=== PATIENT | male | born 1960 | race Caucasian/White ===

== ENCOUNTER 2017-01-23 17:39 | Emergency (ER) | payer MEDICAID ==
[~2017-01-23] VITALS: Ht 157.5 cm; Wt 74.8 kg
[2017-01-23 18:37] VITALS: BP 114/84
[2017-01-23 19:09] LABS: Basophils # (auto) 0 uL; Basophils % (auto) 0.2 % (0.0-2.0); Eosinophils # (auto) 0 uL; Hematocrit 46.8 % (41.0-53.0); Hemoglobin 16.3 g/dL (13.5-17.5); Lymphocytes # (auto) 1.2 uL; Lymphocytes % (auto) 20.3 % (10.0-50.0); Mean Corpuscular Hgb Conc. 34.7 g/dL (32.0-36.0); Mean Platelet Volume 7.7 fL (7.4-10.4); Monocytes # (auto) 0.8 uL; Neutrophils # (auto) 3.9 uL; Neutrophils % (auto) 65.5 % (37.0-80.0); Platelet Count (auto) 159 10^3/uL (140-450); White Blood Cell 5.9 10^3/uL (4.4-10.8)
[2017-01-23 19:25] LABS: Albumin 3.6 g/dL (3.4-5.0); BUN/Creatinine Ratio 9.7; Calcium 8.5 mg/dL (8.5-10.1); Potassium 4.6 mmol/L (3.5-5.1)
[2017-01-23 19:28] LABS: Bilirubin, Total 0.9 mg/dL (0.2-1.0); Total Protein 8.4 g/dL (6.4-8.2)
== END 2017-01-23 22:35 | disposition left against medical advice (07) ==
LOC: ER 17:44
DX: R11.2 Nausea with vomiting, unspecified (principal); Z53.21 Procedure and treatment not carried out due to patient leaving prior to being seen by health care provider
CPT/HCPCS: 36415; 80053; 85025

== ENCOUNTER → 2018-04-30 | Outpatient (CLI) | payer MEDICAID | END | disposition home or self-care (01) | LOC: Rad HDHVI 09:03 | PROVIDERS: ATTEND Internal Medicine | DX: I35.8 Other nonrheumatic aortic valve disorders (principal); I10 Essential (primary) hypertension; R06.02 Shortness of breath; R07.89 Other chest pain | CPT/HCPCS: 93306 ==

== ENCOUNTER → 2018-05-13 | Outpatient (CLI) | payer MEDICAID ==
[~2018-05-13] VITALS: Ht 160 cm; Wt 76.2 kg
== END | disposition home or self-care (01) ==
LOC: Rad HDHVI 09:05
PROVIDERS: ATTEND Internal Medicine Cardiovascular Disease
DX: I10 Essential (primary) hypertension (principal); G47.33 Obstructive sleep apnea (adult) (pediatric); B19.20 Unspecified viral hepatitis C without hepatic coma
CPT/HCPCS: 78452; 93017; 96374; A9500

== ENCOUNTER 2023-09-16 15:21 | Inpatient (IN) | payer MEDICAID ==
[~2023-09-16] VITALS: Ht 177.8 cm; Wt 71.2 kg
[2023-09-16] MEDS ORDERED: SODIUM CHLORIDE 0.9% 2,000 ML IV ONE (15:45)
[2023-09-16 15:52] LABS: Basophils # (auto) 0 10 ^3/uL (0-0.2); Basophils % (auto) 0.3 % (0.0-2.0); Eosinophils # (auto) 0 10 ^3/uL (0-0.8); Lymphocytes # (auto) 0.3 10 ^3/uL (0.4-5.4); Mean Corpuscular Hgb Conc. 33.1 g/dL (32.0-36.0); Monocytes # (auto) 0.1 10 ^3/uL (0-1.3); Nucleated Red Blood Cells % 0.1 %
[2023-09-16 15:54] LABS: Eosinophils % (auto) 0.1 % (0.0-7.0); Hemoglobin 14.6 g/dL (13.5-17.5); Lymphocytes % (auto) 6.2 % (10.0-50.0); Mean Corpuscular Hemoglobin 33.9 pg (28.0-32.0); Mean Corpuscular Volume 102.3 fL (80.0-100.0); Monocytes % (auto) 1.6 % (0.0-12.0); Neutrophils % (auto) 91.8 % (37.0-80.0); Red Cell Distribution Width 14.6 % (11.8-14.3); White Blood Cell 4.3 10^3/uL (4.4-10.8)
[2023-09-16 16:10] LABS: Alanine Aminotransferase 275 U/L (7-40); Alkaline Phosphatase 110 U/L (46-116); Amylase 42 U/L (30-118); Anion Gap 7 (5-15); Aspartate Aminotransferase 181 U/L (13-40); BUN/Creatinine Ratio 14.9 (10.0-20.0); Blood Urea Nitrogen 18 mg/dL (9-23); Calcium 8.9 mg/dL (8.7-10.4); Carbon Dioxide 26 mmol/L (20-30); Chloride 94 mmol/L (98-107); Potassium 4.4 mmol/L (3.5-5.1); Sodium 127 mmol/L (136-145)
[2023-09-16 16:11] LABS: Albumin 3.5 g/dL (3.2-4.8); Bilirubin, Total 0.6 mg/dL (0.2-1.0); Total Protein 7.2 g/dL (5.7-8.2)
[2023-09-16 16:15] LABS: Glucose 637 mg/dL (74-106)
[2023-09-16 16:26] LABS: Urine Bacteria MANY /hpf (None Seen); Urine Blood 1+ /uL (Negative); Urine Clarity CLOUDY (Clear); Urine Color Colorless (Yellow); Urine Mucus FEW (None Seen); Urine Protein, UAD 1+ (Negative); Urine Specific Gravity 1.015 (1.001-1.035); Urine Urobilinogen Normal (Negative); Urine WBC 2932 /hpf (0 - 3); Urine WBC Clumps PRESENT /hpf (None Seen)
[2023-09-16] MEDS ORDERED: SODIUM CHLORIDE 0.9% 1,000 ML IVB ONE (16:30)
[2023-09-16] MEDS ORDERED: cefTRIAXone 1GM/50ML D5W 50 ML IV ONE (17:00)
[2023-09-16] MEDS ORDERED: InsuLIN REG 1unit/0.01ml Soln (100units/ml) IV ONE ×2 (17:00→18:00)
[2023-09-16] MEDS ORDERED: NEOMYCIN-POLYMY-DEXAMETH 0.1% OPTH(EYE) SUSP 5ML RIGHTEYE ONE (17:30)
[2023-09-16] MEDS ORDERED: NEOMYCIN-POLYMY-DEXAMETH 0.1% OPTH(EYE) SUSP 5ML LEFTEYE ONE (17:30)
[2023-09-16 17:39] LABS: Magnesium 1.4 mg/dL (1.6-2.6)
[2023-09-16] MEDS ORDERED: DEXTROSE (50%) 50ML SYRG IV PRN (18:00)
[2023-09-16] MEDS ORDERED: MORPHINE SULFATE INJ 2 MG/ml SYRG IV PRN (18:00)
[2023-09-16] MEDS ORDERED: NITROGLYCERIN 0.4 MG SL TAB SL PRN (18:00)
[2023-09-16 18:03] VITALS: PULSE 115; RESP 23; O2SAT 95
[2023-09-16] MEDS: MAGNESIUM SULFATE 1GM/100ML 100 ML IV SCH ×3 (18:40→23:20)
[2023-09-16] MEDS: SODIUM CHLORIDE 0.9% 1,000 ML IV SCH (18:40)
[2023-09-16] MEDS: ACETAMINOPHEN 325 MG TAB PO PRN (18:40)
[2023-09-16 19:30] LABS: Amphetamine Screen, Urine Neg (NEGATIVE); Barbiturate Scree,Urine Neg (NEGATIVE); Benzodiazephine Screen, Urine Neg (NEGATIVE); Cannabinoid Screen, Urine Neg (NEGATIVE); Cocaine Screen, Urine Neg (NEGATIVE); Opiate Scree,Urine Neg (NEGATIVE); Phencyclidine Screen, Urine Neg (NEGATIVE)
[2023-09-16 19:40] VITALS: PULSE 106; RESP 22; O2SAT 95
[2023-09-16] MEDS ORDERED: InsuLIN REG 1unit/0.01ml Soln (100units/ml) SC SCH (22:00)
[2023-09-16] MEDS: ACCU-CHEK COMFORT CURVE STRIP VI SCH (23:00)
[2023-09-16] MEDS: ASCORBIC ACID 500 MG TAB PO SCH (23:21)
[2023-09-17] VITALS (9 sets, daily range): BP systolic 90–97; BP diastolic 53–70; PULSE 65–97; RESP 16–20; TEMP 97–99; O2SAT 93–98
[2023-09-17] MEDS ORDERED: MAGNESIUM SULFATE 1GM/100ML 100 ML IV ONE (01:32)
[2023-09-17] MEDS: MAGNESIUM SULFATE 1GM/100ML 100 ML IV SCH ×3 (01:35→14:34)
[2023-09-17] MEDS: SODIUM CHLORIDE 0.9% 1,000 ML IV SCH ×4 (03:02→23:12)
[2023-09-17] MEDS: ACCU-CHEK COMFORT CURVE STRIP VI SCH ×4 (06:12→21:54)
[2023-09-17] MEDS: InsuLIN REG 1unit/0.01ml Soln (100units/ml) SC SCH ×4 (06:14→21:57)
[2023-09-17 06:39] LABS: Alanine Aminotransferase 197 U/L (7-40); Albumin 2.8 g/dL (3.2-4.8); Alkaline Phosphatase 75 U/L (46-116); Anion Gap 4 (5-15); Aspartate Aminotransferase 138 U/L (13-40); BUN/Creatinine Ratio 15.6 (10.0-20.0); Bilirubin, Total 0.5 mg/dL (0.2-1.0); Blood Urea Nitrogen 10 mg/dL (9-23); Calcium 7.7 mg/dL (8.7-10.4); Carbon Dioxide 23 mmol/L (20-30); Potassium 3.3 mmol/L (3.5-5.1)
[2023-09-17 06:48] LABS: Chloride 108 mmol/L (98-107); Glucose 147 mg/dL (74-106); Sodium 135 mmol/L (136-145)
[2023-09-17 07:08] LABS: Total Protein 5.8 g/dL (5.7-8.2)
[2023-09-17 07:09] LABS: Basophils # (auto) 0 10 ^3/uL (0-0.2); Basophils % (auto) 0.3 % (0.0-2.0); Eosinophils # (auto) 0 10 ^3/uL (0-0.8); Hemoglobin 12.3 g/dL (13.5-17.5); Lymphocytes # (auto) 1.6 10 ^3/uL (0.4-5.4); Monocytes # (auto) 0.5 10 ^3/uL (0-1.3)
[2023-09-17 07:12] LABS: Eosinophils % (auto) 0.5 % (0.0-7.0); Hematocrit 36.1 % (41.0-53.0); Lymphocytes % (auto) 19.5 % (10.0-50.0); Mean Corpuscular Hgb Conc. 34.1 g/dL (32.0-36.0); Mean Corpuscular Volume 99.9 fL (80.0-100.0); Monocytes % (auto) 5.8 % (0.0-12.0); Neutrophils # (auto) 5.9 10 ^3/uL (1.6-8.6); Neutrophils % (auto) 73.9 % (37.0-80.0); Red Blood Cells 3.62 10^6/uL (4.5-5.90); Red Cell Distribution Width 14.3 % (11.8-14.3)
[2023-09-17] MEDS: ZINC SULFATE 220mg CAP or TAB PO SCH (09:31)
[2023-09-17] MEDS: ASCORBIC ACID 500 MG TAB PO SCH ×2 (09:31→21:54)
[2023-09-17] MEDS: MULTIPLE VITAMIN TAB PO SCH (09:32)
[2023-09-17] MEDS: ENOXAPARIN SOD 40 MG/0.4 ML SYRINGE SC SCH (09:32)
[2023-09-17 09:34] LABS: Hepatitis B Surface Antigen Negative (Negative)
[2023-09-17] MEDS: cefTRIAXone 1GM/50ML D5W 50 ML IV SCH (09:39)
[2023-09-17 11:55] LABS: Hepatitis C Antibody Positive (Negative)
[2023-09-17] MEDS ORDERED: DEXTROSE (50%) 50ML SYRG IV PRN (15:45)
[2023-09-17] MEDS ORDERED: InsuLIN REG 1unit/0.01ml Soln (100units/ml) SC SCH (17:00)
[2023-09-17] MEDS: ACETAMINOPHEN 325 MG TAB PO PRN (21:54)
[2023-09-18] VITALS (7 sets, daily range): BP systolic 88–114; BP diastolic 51–76; PULSE 74–86; RESP 12–20; TEMP 98–98.9; O2SAT 93–97
[2023-09-18] MEDS: ACCU-CHEK COMFORT CURVE STRIP VI SCH ×4 (06:33→21:42)
[2023-09-18] MEDS: SODIUM CHLORIDE 0.9% 1,000 ML IV SCH ×2 (06:35→20:00)
[2023-09-18] MEDS: InsuLIN REG 1unit/0.01ml Soln (100units/ml) SC SCH ×4 (06:35→21:42)
[2023-09-18] MEDS: MULTIPLE VITAMIN TAB PO SCH (09:09)
[2023-09-18] MEDS: ENOXAPARIN SOD 40 MG/0.4 ML SYRINGE SC SCH (09:10)
[2023-09-18] MEDS: ZINC SULFATE 220mg CAP or TAB PO SCH (09:10)
[2023-09-18] MEDS: ASCORBIC ACID 500 MG TAB PO SCH ×2 (09:10→21:42)
[2023-09-18] MEDS: cefTRIAXone 1GM/50ML D5W 50 ML IV SCH (09:13)
[2023-09-18] MEDS: ACETAMINOPHEN 325 MG TAB PO PRN ×2 (09:29→18:19)
[2023-09-19] MEDS: SODIUM CHLORIDE 0.9% 1,000 ML IV SCH ×2 (02:27→12:40)
[2023-09-19] MEDS: ACETAMINOPHEN 325 MG TAB PO PRN ×2 (02:31→09:01)
[2023-09-19 05:00] VITALS: BP 115/75; PULSE 71; RESP 20; TEMP 97.2; O2SAT 94
[2023-09-19] MEDS: ACCU-CHEK COMFORT CURVE STRIP VI SCH ×2 (06:25→11:30)
[2023-09-19] MEDS: InsuLIN REG 1unit/0.01ml Soln (100units/ml) SC SCH ×2 (06:27→11:30)
[2023-09-19 08:00] VITALS: PULSE 73; PULSE 78; RESP 18
[2023-09-19 09:00] VITALS: BP 114/73; PULSE 73; RESP 18; TEMP 97.6; O2SAT 97
[2023-09-19] MEDS: cefTRIAXone 1GM/50ML D5W 50 ML IV SCH (09:04)
[2023-09-19] MEDS: MULTIPLE VITAMIN TAB PO SCH (09:09)
[2023-09-19] MEDS: ZINC SULFATE 220mg CAP or TAB PO SCH (09:09)
[2023-09-19] MEDS: ASCORBIC ACID 500 MG TAB PO SCH (09:09)
[2023-09-19] MEDS: ENOXAPARIN SOD 40 MG/0.4 ML SYRINGE SC SCH (09:10)
[2023-09-19] MEDS ORDERED: CIPR-173 PO (11:11)
[2023-09-19] MEDS ORDERED: METF-372 PO (11:11)
[2023-09-19 12:16] VITALS: TEMP 36.4
== END 2023-09-19 13:01 | disposition home or self-care (01) | DRG 720 ==
LOC: EDBD 15:21 → ER 15:21 → TELE 18:03 → TELE-WESTW 18:03
PROVIDERS: ADMIT Nurse Practitioner Family; ATTEND Family Medicine
DX: A41.59 Other Gram-negative sepsis (principal); E11.10 Type 2 diabetes mellitus with ketoacidosis without coma; E86.0 Dehydration; E83.42 Hypomagnesemia; E87.1 Hypo-osmolality and hyponatremia; H10.33 Unspecified acute conjunctivitis, bilateral; N10 Acute pyelonephritis; N30.00 Acute cystitis without hematuria; I10 Essential (primary) hypertension; F17.210 Nicotine dependence, cigarettes, uncomplicated; B19.20 Unspecified viral hepatitis C without hepatic coma; R74.01 Elevation of levels of liver transaminase levels; R74.8 Abnormal levels of other serum enzymes; R79.89 Other specified abnormal findings of blood chemistry; Z59.01 Sheltered homelessness; Z71.6 Tobacco abuse counseling
CPT/HCPCS: 36415; 71045; 76705; 80053; 80307; 80320; 81001; 82150; 82962; 83036; 83690; 83735; 83880; 84484; 85025; 86803; 87040; 87077; 87086; 87088; 87186; 87340; 93005; 96361; 96365; 96375; G0378; J1815

== ENCOUNTER 2025-07-17 09:50 | Inpatient (IN) | payer MEDICAID ==
[~2025-07-17] VITALS: Ht 160 cm; Wt 62.8 kg
[~2025-07-17 09:50] MED LIST: CIPR-173 PO; METF-372 PO
--- NOTE | 2025-07-17 10:46 | ED.PDOC ---
History of Present Illness HPI Comments 64 year old male with PMHx HTN, DM insulin dependent, Hepatitis C, presents to the ED with a chief complaint of generalized weakness onset 1 day. Patient states he has been experiencing generalized weakness as well as nausea and abdominal discomfort for the past day. He states he ate 2 apples last night, bel ieves his BG might be elevated. Denies fever, chills, chest pain, vomiting, diarrhea, dizziness, chest pain, shortness of breath, numbness/tingling, dysuria, hematuria, melena. No other symptoms or modifying factors present at this time. Chief Complaint: General Weakness Time Seen by MD: 10:30 Primary Care Provider: NONE Reviewed Notes: Medications, Allergies Allergies: Coded Allergies: NO KNOWN ALLERGIES (Unverified , 01/05/12) Home Meds Active Scripts Metformin Hydrochloride (Metformin Hcl) 1,000 Mg Tab, 1 TAB PO BID, #180 TAB 1 Refill Prov:GARIMA HURTADO MD 09/19/23 Ciprofloxacin Hcl (Cipro) 500 Mg Tab, 1 TAB PO BID, #20 TAB Prov:GARIMA HURTADO MD 09/19/23 Information Source: Patient Mode of Arrival: Wheelchair Severity: Moderate Timing: Days Duration: Since onset Prehospital treatment: None Past Medical History PAST MEDICAL HISTORY: DM, HTN Past Medical History (Other): hep c Surgical History: Denies all surgeries Family History Family History: No family hx of DM, No family hx of Heart yoly, No family hx of Stroke Social History Smoker: Cigarettes Alcohol: Denies ETOH Use Drugs: Denies Drug Use Lives In: Homeless Constitutional: reports: weakness; denies: chills, diaphoresis, fatigue, fever, malaise, sweats, others EENTM: denies: blurred vision, double vision, ear bleeding, ear discharge, ear drainage, ear pain, ear ringing, eye pain, eye redness, hearing loss, mouth pain, mouth swelling, nasal discharge, nose bleeding, nose congestion, nose pain, photophobia, tearing, throat pain, throat swelling, voice changes, others Respiratory: denies: cough, hemoptysis, orthopnea, SOB at rest, shortness of breath, SOB with excertion, stridor, wheezing, others Cardiovascular: denies: chest pain, dizzy spells, diaphoresis, Dyspnea on exertion, edema, irregular heart beat, left arm pain, lightheadedness, palpitations, PND, syncope, others Gastrointestinal: reports: abdominal pain, nausea; denies: abdomen distended, blood streaked bowels, constipated, diarrhea, dysphagia, difficulty swallowing, hematemesis, melena, poor appetite, poor fluid intake, rectal bleeding, rectal pain, vomiting, others Genitourinary: denies: burning, dysuria, flank pain, frequency, hematuria, incontinence, penile discharge, penile sore, pain, testicle pain, testicle swelling, urgency, others Neurological: reports: weakness; denies: dizziness, fainting, headache, left sided numbness, left sided weakness, numbness, paresthesia, pre-existing deficit, right sided numbness, right sided weakness, seizure, speech problems, tingling, tremors, others Musculoskeletal: denies: back pain, gout, joint pain, joint swelling, muscle pain, muscle stiffness, neck pain, others Integumetry: denies: bruises, change in color, change in hair/nails, dryness, laceration, lesions, lumps, rash, wounds, others Allergic/Immunocompromised: denies: Difficulty Healing, Frequent Infections, Hives, Itching, others Hematologic/Lymphatic: denies: anemia, blood clots, easy bleeding, easy bruising, swollen glands, others Endocrine: denies: excessive hunger, excessive sweating, excessive thirst, excessive urination, flushing, intolerance to cold, intolerance to heat, unexplained weight gain, unexplained weight loss, others Psychiatric: denies: anxiety, bipolar disorder, depression, hopeless, panic disorder, schizophrenia, sleepless, suicidal, others Physical Exam General Appearance: Normal HEENT: Normal ENT Inspection, Pharynx Normal, TMs Normal Neck: Full Range of Motion, Non-Tender, Normal, Normal Inspection Respiratory: Chest Non-Tender, Lungs Clear, No Accessory Muscle Use, No Respiratory Distress, Normal Breath Sounds Cardiovascular: No Edema, No JVD, No Murmur, No Gallop, Normal Peripheral Pulses, Regular Rate/Rhythm Breast Exam: Deferred Gastrointestinal: No Organomegaly, Non Tender, No Pulsatile Mass, Normal Bowel Sounds, Soft Genitalia: Deferred Pelvic: Deferred Rectal: Deferred Extremities: No calf tenderness, Normal capillary refill, Normal inspection, Normal range of motion, Non-tender, No pedal edema Musculoskeletal : Apperance: Normal Neurologic: Alert, healthcare economics consultant II-XII nml as Tested, No Motor Deficits, Normal Affect, Normal Mood, No Sensory Deficits Cerebellar Function: Normal Reflexes: Normal Skin: Dry, Normal Color, Warm Lymphatic: No Adenopathy Was a procedure done? Was a procedure done?: No Differential Dx Considerations may include: ACS, CVA, viral syndrome, electrolyte abnormality, infectious etiology X-Ray, Labs, Meds, VS Vital Signs Date Time Temp Pulse Resp B/P (MAP) Pulse Ox O2 Delivery O2 Flow Rate FiO2 07/17/25 10:20 Room Air* 0 21 07/17/25 10:18 97.1 89 16 110/75 (87) 97 97.1 07/17/25 09:52 97.1 89 16 110/75 97 97.1 Lab Test 07/17/25 12:46 07/17/25 11:18 07/17/25 09:59 Range/Units Troponin I High Sensitivity < 3 L < 3 L </=54 ng/L White Blood Count 8.6 4.4-10.8 10^3/uL Red Blood Count 3.85 L 4.5-5.90 10^6/uL Hemoglobin 13.0 L 13.5-17.5 g/dL Hematocrit 38.7 L 41.0-53.0 % Mean Corpuscular Volume 100.4 H 80.0-100.0 fL Mean Corpuscular Hemoglobin 33.7 H 28.0-32.0 pg Mean Corpuscular Hemoglobin Concent 33.6 32.0-36.0 g/dL Red Cell Distribution Width 14.1 11.8-14.3 % Platelet Count 135 L 140-450 10^3/uL Mean Platelet Volume 7.2 6.9-10.8 fL Neutrophils (%) (Auto) 77.9 37.0-80.0 % Lymphocytes (%) (Auto) 11.9 10.0-50.0 % Monocytes (%) (Auto) 7.3 0.0-12.0 % Eosinophils (%) (Auto) 2.6 0.0-7.0 % Basophils (%) (Auto) 0.3 0.0-2.0 % Neutrophils # (Auto) 6.7 1.6-8.6 10 ^3/uL Lymphocytes # (Auto) 1.0 0.4-5.4 10 ^3/uL Monocytes # (Auto) 0.6 0-1.3 10 ^3/uL Eosinophils # (Auto) 0.2 0-0.8 10 ^3/uL Basophils # (Auto) 0 0-0.2 10 ^3/uL Nucleated Red Blood Cells 0.0 % Sodium Level 133 L 136-145 mmol/L Potassium Level 4.4 3.5-5.1 mmol/L Chloride Level 98 98-107 mmol/L Carbon Dioxide Level 26 20-31 mmol/L Anion Gap 9 5-15 Blood Urea Nitrogen 14 9-23 mg/dL Creatinine 0.74 0.700-1.30 mg/dL Glomerular Filtration Rate Calc 102 >90 mL/min BUN/Creatinine Ratio 18.9 10.0-20.0 Serum Glucose 302 H 74-106 mg/dL Calcium Level 8.6 L 8.7-10.4 mg/dL POC Glucose 237 H 70-106 mg/dl [place] [id number] Ph: [phone] DIAGNOSTIC IMAGING Diagnostic Imaging Report : [id number] Signed PATIENT: ANABELL AN ACCT: [id number] UNIT: [id number] : 1960 LOC: ER ROOM / BED: / AGE / SEX: 64 / M ADM STATUS: REG ER SERVICE 1042 ORDERING PHYSICIAN: JEROME SINGH MD PROCEDURE(s): CXRP - CHEST PORTABLE REASON: weakness ORDER NUMBER(s): [id number], ACCESSION NUMBER(s): [id number] EXAM: XY CHEST PORTABLE Indication: weakness Technique: Single frontal view of the chest was obtained Comparison: XY CHEST PORTABLE on DOS: 09/16/23 FINDINGS: Lines and Tubes: None Lungs: No focal consolidation. Low lung volumes. Pleura: No effusion. No pneumothorax. Cardiomediastinal contours: Unremarkable Bones: No acute osseous abnormality. IMPRESSION: No acute cardiopulmonary disease. ATED BY: SERGIO LOPEZ MD DICTATED DATE/TIME: 07/17/25 112 SIGNED BY: SERGIO LOPEZ MD SIGNED DATE/TIME: 07/17/25 112 CC: Time of 1ST Reevaluation: 11:00 Reevaluation 1ST: Unchanged Patient Education/Counseling: Diagnosis, Treatment, Prognosis Family Education/Counseling: No Family Present SEPSIS Sepsis Screen Date sepsis recognized/suspect: Jul 17, 2025 Time Sepsis recognized/suspect: 951 Recent Procedure: No On Antibiotic Therapy: No Respiratory Rate >20: No Heart Rate >90: No Temp<36 C (96.8 F) or >38.3 C: No SBP <90 or MAP <65 mmHG: No New Acute Mental Status Change: No Is the patient on CPAP, BIPAP,: No Physician Orders Urinalysis (07/17/25 10:42) Chest Portable (07/17/25 10:42) Electrocardigram (07/17/25 10:42) Troponin-I Hs (07/17/25 13:42) Electrocardigram (07/17/25 11:42) Electrocardigram (07/17/25 13:42) Vital Signs Date Time Temp Pulse Resp B/P (MAP) Pulse Ox O2 Delivery O2 Flow Rate FiO2 07/17/25 10:20 Room Air* 0 21 07/17/25 10:18 97.1 89 16 110/75 (87) 97 97.1 07/17/25 09:52 97.1 89 16 110/75 97 97.1 Laboratory Tests Test 07/17/25 11:18 White Blood Count 8.6 10^3/uL (4.4-10.8) Departure 1 Departure Time of Disposition: 13:40 (Patient with a multiple episodes of near-syncope and generalized weakness. Patient also with some worsening confusion. On patient for further workup and expert consultation) Impression: Primary Impression: Acute metabolic encephalopathy Additional Impressions: Uncontrolled diabetes mellitus Generalized weakness Disposition: ADMITTED INPATIENT Admit to: Med Surg Condition: Guarded Critical Care Note Critical Care Time?: No Stability Stability form required: No Heart Score Heart Score: Heart Score Response (Comments) Value History N/A 0 EKG N/A 0 Age N/A 0 Risk Factors N/A 0 Troponin N/A 0 Total 0 I personally scribed for JEROME SINGH MD ([email or web address]) on 07/17/25 at 10:46. Electronically submitted by Aminah Fargoso ([email or web address]). I personally scribed for JEROME SINGH MD ([email or web address]) on 07/17/25 at 12:21. Electronically submitted by Aminah Fragoso ([email or web address]). JEROME SINGH MD Jul 17, 2025 10:46
--- NOTE | 2025-07-17 11:24 | DVH ---
EXAM: XY CHEST PORTABLE Indication: weakness Technique: Single frontal view of the chest was obtained Comparison: XY CHEST PORTABLE on DOS: 09/16/23 FINDINGS: Lines and Tubes: None Lungs: No focal consolidation. Low lung volumes. Pleura: No effusion. No pneumothorax. Cardiomediastinal contours: Unremarkable Bones: No acute osseous abnormality. IMPRESSION: No acute cardiopulmonary disease.
[2025-07-17 11:38] LABS: Hematocrit 38.7 % (41.0-53.0); Hemoglobin 13.0 g/dL (13.5-17.5); Mean Corpuscular Hemoglobin 33.7 pg (28.0-32.0); Mean Corpuscular Volume 100.4 fL (80.0-100.0); Nucleated Red Blood Cells % 0.0 %
[2025-07-17 11:48] LABS: Chloride 98 mmol/L (98-107); Potassium 4.4 mmol/L (3.5-5.1)
[2025-07-17 11:49] LABS: Anion Gap 9 (5-15); Carbon Dioxide 26 mmol/L (20-31); Sodium 133 mmol/L (136-145)
[2025-07-17 11:50] LABS: Calcium 8.6 mg/dL (8.7-10.4)
[2025-07-17 11:55] LABS: BUN/Creatinine Ratio 18.9 (10.0-20.0); Blood Urea Nitrogen 14 mg/dL (9-23); Glucose 302 mg/dL (74-106)
[2025-07-17] MEDS ORDERED: NITROGLYCERIN 0.4 MG SL TAB SL PRN (15:30)
[2025-07-17] MEDS ORDERED: MORPHINE SULFATE INJ 2 MG/ml SYRG IV PRN (15:30)
[2025-07-17 15:33] LABS: Urine Protein, UAD Negative (Negative)
--- NOTE | 2025-07-17 15:38 | DVHHPRES ---
History of Present Illness Resident Creating Document: GER HOGUE RESIDENT History of Present Illness This is a 64-year-old male with past medical history of hypertension, type 2 diabetes mellitus, hepatitis-C presented to the ED with a chief complaint of generalized weakness, abdominal discomfort, nausea and vomiting for last 2 days prior to this visit. The patient stated that for last few weeks his blood sugar was fluctuating average around 250 and had few near syncopal events, he fall without any loss of consciousness or any trauma to the head or any parts of the body. He mentioned compliant with his diabetic medication. He denies fever chill, chills, chest pain, shortness of breath, palpitation, lightheadedness, dysuria, hematuria or any altered bowel habit. PCP: [facility] Past Medical History Hypertension, type 2 diabetes mellitus, hepatitis-C Past Surgical History Denies any surgical history Family History Unknown Past Social History Lives alone Smoke1 pack per week, quit drinking 12 years ago and never tried any other drugs Review of Systems Constitutional: Yes: Weakness; No: Fever, Chills, Sweats, Malaise, Other Eyes: No: Pain, Vision change, Conjunctivae inflammation, Eyelid inflammation, Other, Redness ENT: No: Ear pain, Ear discharge, Nose pain, Nose discharge, Nose congestion, Mouth pain, Mouth swelling, Throat pain, Throat swelling, Other Respiratory: No: Cough, Dry, Shortness of breath, SOB with excertion, Wheezing, Hemoptysis, Pleuritic Pain, Sputum, Wheezing, Other Cardiovascular: No: Chest Pain, Palpitations, Orthopnea, Paroxysmal Noc. Dyspnea, Edema, Lt Headedness, Other Gastrointestinal: Nausea, Vomiting, Abdominal Pain; No: Diarrhea, Constipation, Melena, Hematochezia, Other Genitourinary: No Dysuria, No Frequency, No Incontinence, No Hematuria, No Retention, No Other Musculoskeletal: No: other, neck pain, shoulder pain, arm pain, back pain, hand pain, leg pain, foot pain Skin: No: Rash, Lesions, Jaundice, Bruising, Other Neurological: No: Weakness, Numbness, Incoordination, Change in speech, Confusion, Seizures, Other Allergies: Coded Allergies: NO KNOWN ALLERGIES (Unverified , 01/05/12) Medications Current Medications Medications Dose Ordered Sig/[facility] Route Start Time Stop Time Status Last Admin Dose Admin Nitroglycerin 0.4 mg Q5MINP PRN SL 07/17/25 15:30 Morphine Sulfate 2 mg Q30M PRN IV 07/17/25 15:30 Diagnostic Test (Pha) 1 strip ACHS 07/17/25 17:00 UNV Insulin Human Regular HS SC 07/17/25 22:00 UNV Insulin Human Regular AC SC 07/17/25 17:00 UNV Dextrose 50 ml UD PRN IV 07/17/25 15:45 UNV Exam Vital Signs Vital Signs Date Time Temp Pulse Resp B/P (MAP) Pulse Ox O2 Delivery O2 Flow Rate FiO2 07/17/25 13:38 89 17 93 Room Air 07/17/25 13:38 97.6 111/70 (84) 97.6 07/17/25 10:20 0 21 Exam Physical examination: General Appearance: Alert, Oriented X2, Cooperative, No acute distress HEENT: Atraumatic, PERRLA, EOMI, Mucous membrane moist/pink Respiratory: Clear to auscultation, Normal air movement Cardiovascular: Regular rate, Normal S1, Normal S2, No murmurs, no chest wall tenderness Abdominal: Normal bowel sounds, Soft, No tenderness, No hepatospenomegaly, No masses Extremities: No clubbing, No cyanosis, No edema, Normal pulses, No tenderness/ swelling Skin: No rashes, No breakdown, No significant lesion Neuro: Normal speech, Strength at 5/5 X4 ext, Normal tone, Sensation intact, Cranial nerves 3-12 NL, Reflexes 2+ Psych/Mental Status: Mental status NL, Mood NL Labs/Xrays Labs Test 07/17/25 14:44 07/17/25 14:12 07/17/25 11:18 07/17/25 09:59 Range/Units Urine Color Yellow Yellow Urine Clarity Clear Clear Urine pH 6.5 5.0-9.0 Urine Specific [place] 1.026 1.001-1.035 Urine Protein Negative Negative Urine Ketones Negative Negative Urine Blood Negative Negative /uL Urine Nitrite Negative Negative Urine Bilirubin Negative Negative Urine Urobilinogen Normal Negative mg/dL Urine Leukocyte Esterase Negative Negative /uL Urine RBC <1 0 - 3 /hpf Urine Microscopic WBC 1 0-3 /HPF Urine Squamous Epithelial Cells None seen <5 /hpf Urine Bacteria None seen None Seen /hpf Urine Glucose 4+ H Normal mg/dL Troponin I High Sensitivity < 3 L </=54 ng/L White Blood Count 8.6 4.4-10.8 10^3/uL Red Blood Count 3.85 L 4.5-5.90 10^6/uL Hemoglobin 13.0 L 13.5-17.5 g/dL Hematocrit 38.7 L 41.0-53.0 % Mean Corpuscular Volume 100.4 H 80.0-100.0 fL Mean Corpuscular Hemoglobin 33.7 H 28.0-32.0 pg Mean Corpuscular Hemoglobin Concent 33.6 32.0-36.0 g/dL Red Cell Distribution Width 14.1 11.8-14.3 % Platelet Count 135 L 140-450 10^3/uL Mean Platelet Volume 7.2 6.9-10.8 fL Neutrophils (%) (Auto) 77.9 37.0-80.0 % Lymphocytes (%) (Auto) 11.9 10.0-50.0 % Monocytes (%) (Auto) 7.3 0.0-12.0 % Eosinophils (%) (Auto) 2.6 0.0-7.0 % Basophils (%) (Auto) 0.3 0.0-2.0 % Neutrophils # (Auto) 6.7 1.6-8.6 10 ^3/uL Lymphocytes # (Auto) 1.0 0.4-5.4 10 ^3/uL Monocytes # (Auto) 0.6 0-1.3 10 ^3/uL Eosinophils # (Auto) 0.2 0-0.8 10 ^3/uL Basophils # (Auto) 0 0-0.2 10 ^3/uL Nucleated Red Blood Cells 0.0 % Sodium Level 133 L 136-145 mmol/L Potassium Level 4.4 3.5-5.1 mmol/L Chloride Level 98 98-107 mmol/L Carbon Dioxide Level 26 20-31 mmol/L Anion Gap 9 5-15 Blood Urea Nitrogen 14 9-23 mg/dL Creatinine 0.74 0.700-1.30 mg/dL Glomerular Filtration Rate Calc 102 >90 mL/min BUN/Creatinine Ratio 18.9 10.0-20.0 Serum Glucose 302 H 74-106 mg/dL Calcium Level 8.6 L 8.7-10.4 mg/dL POC Glucose 237 H 70-106 mg/dl SEPSIS Sepsis Screen Date sepsis recognized/suspect: Jul 17, 2025 Time Sepsis recognized/suspect: 951 Recent Procedure: No On Antibiotic Therapy: No Respiratory Rate >20: No Heart Rate >90: No Temp<36 C (96.8 F) or >38.3 C: No SBP <90 or MAP <65 mmHG: No New Acute Mental Status Change: No Is the patient on CPAP, BIPAP,: No Physician Orders Chest Portable (07/17/25 10:42) Electrocardigram (07/17/25 10:42) Electrocardigram (07/17/25 11:42) Electrocardigram (07/17/25 13:42) Admit (07/17/25 15:27) Nitroglycerin Sublingual (Ntrostat Subli (07/17/25 15:30) Morphine Sulfate Injection (07/17/25 15:30) Notify Of Changes From Base (07/17/25 15:27) Supervisor Stitching Department For 24 Hours (07/17/25 15:27) Emergency Dysrhythmia Protocol (07/17/25 15:27) Consistent Carb([facility])Diabetes (07/17/25 Dinner) Code Status (07/17/25 15:27) Thyroid Stimulating Hormone (07/17/25 15:30) Comprehensive Hepatitis Panel (07/17/25 15:30) Hepatic Panel (07/17/25 15:30) PTPTT (07/17/25 15:30) Chest Portable (07/17/25 15:33) Echo 2d Mode Cardiac Dop (07/17/25 15:33) Drug Screen (07/17/25 15:34) Glucose Blood (Accu-Chek Comfort Curve T (07/17/25 17:00) Insulin R (Human) (Insulin R) (07/17/25 22:00) Insulin R (Human) (Insulin R) (07/17/25 17:00) Dextrose 50% Syringe (07/17/25 15:45) Enoxaparin Sodium (Lovenox) (07/18/25 10:00) Vital Signs Date Time Temp Pulse Resp B/P (MAP) Pulse Ox O2 Delivery O2 Flow Rate FiO2 07/17/25 13:38 89 17 93 Room Air 07/17/25 13:38 97.6 16 111/70 (84) 94 97.6 07/17/25 10:20 Room Air* 0 21 07/17/25 10:18 97.1 89 16 110/75 (87) 97 97.1 07/17/25 09:52 97.1 89 16 110/75 97 97.1 Laboratory Tests Test 07/17/25 11:18 White Blood Count 8.6 10^3/uL (4.4-10.8) Assessment/Plan Assessment/Plan Assessment and plan: # Acute metabolic/ toxic encephalopathy # Recurrent near syncopal event, rule out arrhythmia - EKG demonstrated and troponins were unremarkable - admit the patient in telemetry - Pending CT head without contrast, UDS, UA and echo # Uncontrolled type 2 diabetes mellitus - moderate sliding scale of insulin # Hypertensive heart disease - hold home medication as blood pressure is on the lower side - pending echo # DVT prophylaxis - Lovenox 40 mg sc daily Goal of care discussed with the patient for more than 20 minutes full code Plan discussed with Dr. Jaramillo Plan discussed with: Patient, Other (RN) My Orders Orders - GER HOGUE RESIDENT Procedure Category Date Status Time Admit ADMIT 07/17/25 Transmitted 15:27 Nitroglycerin PHA 07/17/25 In Process Sublingual (Ntrostat 15:30 Morphine Sulfate PHA 07/17/25 In Process Injection 15:30 Notify Of Changes ROXY 07/17/25 In Process From Base 15:27 Supervisor Stitching Department For ROXY 07/17/25 In Process 24 Hours 15:27 Emergency Dysrhythmia ROXY 07/17/25 In Process Protocol 15:27 Consistent DIET 07/17/25 Transmitted Carb(Ccho)Diabetes Dinner Code Status CODE 07/17/25 Transmitted 15:27 Thyroid Stimulating LAB 07/17/25 In Process Hormone 15:30 Comprehensive LAB 07/17/25 Logged Hepatitis Panel 15:30 Hepatic Panel LAB 07/17/25 In Process 15:30 PTPTT LAB 07/17/25 In Process 15:30 Chest Portable XY 07/17/25 Logged 15:33 Echo 2d Mode Cardiac US 07/17/25 Logged DOP 15:33 Drug Screen LAB 07/17/25 Logged 15:34 Glucose Blood PHA 07/17/25 Logged (Accu-Chek Comfort 17:00 Insulin R (Human) PHA 07/17/25 Logged (Insulin R) 22:00 Insulin R (Human) PHA 07/17/25 Logged (Insulin R) 17:00 Dextrose 50% Syringe PHA 07/17/25 Logged 15:45 Enoxaparin Sodium PHA 07/18/25 Transmitted (Lovenox) 10:00 Date of Service: Jul 17, 2025 Billing Provider: TONY RAI MD Common Visit Codes: [id number] INP/OBS CARE (HIGH) GER HOGUE RESIDENT Jul 17, 2025 15:38
[2025-07-17] MEDS ORDERED: DEXTROSE (50%) 50ML SYRG IV PRN (15:45)
[2025-07-17 16:02] LABS: INR 1.12 (0.9-1.15); Partial Thromboplastin Time 27.6 SEC (24.5-34.5); Prothrombin Time 11.7 sec (9.3-11.8)
--- NOTE | 2025-07-17 16:16 | DVH ---
CHEST RADIOGRAPH Indication: sob Technique: Single frontal view of the chest was obtained Comparison: XY CHEST PORTABLE on DOS: 07/17/25, XY CHEST PORTABLE on DOS: 09/16/23 FINDINGS: Lines and Tubes: None Lungs: No focal consolidation. Probable gas distended bowel below the left diaphragm. If however pneu moperitoneum is of clinical concern recommend CT abdomen pelvis. Pleura: No effusion. No pneumothorax. Cardiomediastinal contours: Unremarkable Bones: No acute osseous abnormality. IMPRESSION: 1. No acute cardiopulmonary disease. 2. Probable gas distended bowel below the left diaphragm. If however pneumoperitoneum is of clinical concern recommend CT abdomen and pelvis.
[2025-07-17] MEDS: SODIUM CHLORIDE 0.9% 1,000 ML IV SCH (16:45)
[2025-07-17] MEDS: InsuLIN REG 1unit/0.01ml Soln (100units/ml) SC SCH ×2 (17:00→21:15)
[2025-07-17] MEDS: ACCU-CHEK COMFORT CURVE STRIP VI SCH (17:00)
[2025-07-17 17:04] VITALS: PULSE 80; RESP 18; O2SAT 97
--- NOTE | 2025-07-17 18:00 | DVH ---
CLINICAL HISTORY: s/p mechanical fall TECHNIQUE: Helical imaging carried out from skull base to vertex without intravenous contrast. This e xam was performed according to our departmental dose optimization program. Up-to-date CT equipment an d radiation dose reduction techniques are utilized as appropriate. CTDIVol: 53.0 mGy DLP: 863.9 mGy-cm WID: COMPARISON: CT BRAIN on DOS: 04/04/24 FINDINGS: Mild cerebral volume loss with concordant prominence of the subarachnoid spaces and ventricles note i s made of cavum septum pellucidum. Mild patchy low attenuation in the cerebral white matter consisten t with nonspecific white matter disease. There is no midline shift or mass effect. The soto white matter interfaces are maintained. The basal cisterns are patent. There is no evidence of acute intracranial hemorrhage or extra-axial fluid anyi ection. The mastoid air cells and visualized paranasal sinuses are well-aerated. Mildly displaced fra cture of the left zygomatic process on series 3, image 1 of indeterminate chronicity IMPRESSION: 1. No acute intracranial abnormality. 2. Mild Cerebral volume loss and mild chronic microvascular ischemic change. 3. Mildly displaced fracture deformity of the left zygomatic process partially imaged of indeterminat e chronicity.
[2025-07-17 18:48] LABS: Alkaline Phosphatase 104.0 U/L (46-116)
[2025-07-17 18:49] LABS: Alanine Aminotransferase 262.0 U/L (7-40); Albumin 3.7 g/dL (3.2-4.8); Bilirubin, Direct 0.3 mg/dL (<0.3); Bilirubin, Total 0.8 mg/dL (0.2-1.0); Total Protein 8.3 g/dL (5.7-8.2)
[2025-07-17] MEDS ORDERED: TAMS0.4C39 PO (18:55)
[2025-07-17] MEDS ORDERED: ATOR10TA52 PO (18:55)
[2025-07-17] MEDS ORDERED: METF-370 PO (18:55)
[2025-07-17] MEDS ORDERED: CEPH500C PO (18:55)
[2025-07-17] MEDS ORDERED: GLIP5TAB21 PO (18:55)
[2025-07-17] MEDS ORDERED: NIC21P TOP (18:55)
[2025-07-17] MEDS ORDERED: DAPA1TAB4 PO (18:55)
[2025-07-17] MEDS ORDERED: LISI-275 PO (18:55)
[2025-07-17 19:01] LABS: Amphetamine Screen, Urine Pos (NEGATIVE); Barbiturate Scree,Urine Neg (NEGATIVE); Benzodiazephine Screen, Urine Neg (NEGATIVE); Cannabinoid Screen, Urine Neg (NEGATIVE); Cocaine Screen, Urine Neg (NEGATIVE); Opiate Scree,Urine Neg (NEGATIVE); Phencyclidine Screen, Urine Neg (NEGATIVE)
[2025-07-17 20:00] VITALS: PULSE 102; RESP 21; O2SAT 91
[2025-07-17] MEDS: HYDROcodone-ACET 5/325MG TAB PO PRN (20:26)
[2025-07-17 20:54] VITALS: BP 113/83; PULSE 102; RESP 21; TEMP 99.1; O2SAT 91
[2025-07-17] MEDS: ONDANSETRON HCL 4 MG/2 ML VIAL IV PRN (21:07)
[2025-07-18] VITALS (8 sets, daily range): BP systolic 92–108; BP diastolic 44–79; PULSE 67–88; RESP 17–20; TEMP 97.8–98.5; O2SAT 93–97
[2025-07-18 06:28] LABS: Hematocrit 39.7 % (41.0-53.0); Hemoglobin 13.6 g/dL (13.5-17.5); Mean Corpuscular Hemoglobin 33.9 pg (28.0-32.0); Mean Corpuscular Volume 98.7 fL (80.0-100.0); Nucleated Red Blood Cells % 0.1 %
[2025-07-18 06:55] LABS: Alkaline Phosphatase 85 U/L (46-116); Anion Gap 8 (5-15); BUN/Creatinine Ratio 21.3 (10.0-20.0); Blood Urea Nitrogen 13 mg/dL (9-23); Carbon Dioxide 25 mmol/L (20-31); Chloride 100 mmol/L (98-107); Potassium 4.0 mmol/L (3.5-5.1); Total Protein 6.9 g/dL (5.7-8.2)
[2025-07-18 06:56] LABS: Alanine Aminotransferase 195 U/L (7-40); Albumin 3.0 g/dL (3.2-4.8); Bilirubin, Total 0.7 mg/dL (0.2-1.0); Calcium 7.6 mg/dL (8.7-10.4); Glucose 183 mg/dL (74-106); Sodium 133 mmol/L (136-145)
[2025-07-18] MEDS: ENOXAPARIN SOD 40 MG/0.4 ML SYRINGE SC SCH (08:40)
--- NOTE | 2025-07-18 10:29 | DVH ---
EXAM DESCRIPTION: CT CT AB PEL WO CON-NO ORAL OR IV CLINICAL HISTORY: abdominal pain COMPARISON: CT ABD/PEL on DOS: 04/04/24 TECHNIQUE: CT abdomen and pelvis without IV contrast was performed. Coronal and sagittal MPR images were generated.CTDI/ DLP = 7.48 / 425.18 Dose reduction technique with one or more of the following methods was performed: Automated exposure control, adjustment of the mA and/or kV according to patient size, use of iterative reconstruction technique FINDINGS: Lower chest: Clear lung bases. Multivessel coronary artery disease. Liver: Homogenous in attenuation. The liver is slightly nodular. Biliary: Moderately distended gallbladder. No calcified gallstones. No biliary ductal dilatation. Pancreas: No fat stranding or focal lesion. Spleen: Normal in size.. Adrenal glands: No nodularity. Kidneys: No nephrolithiasis. No hydroureteronephrosis. Water attenuation lesion and subcentimeter hypoattenuating lesion which is too small to characterize on CT.. Bladder: Severely distended urinary bladder. Reproductive organs: Normal. Bowel: No bowel wall thickening or dilatation. Normal appendix.. Moderate colonic stool burden. Peritoneum: No free fluid. No free air. Vessels: Normal caliber abdominal aorta. Moderate atherosclerotic calcifications.. Lymph nodes: No suspicious lymph nodes. Soft tissues: Unremarkable. . Osseous structures: No acute fracture or subluxation. No suspicious osseous lesions. Degenerative changes of the visualized thoracolumbar spine. IMPRESSION: 1. Severely distended urinary bladder, concerning for urinary retention. No hydronephrosis. 2. Moderately distended gallbladder. No calcified gallstones. Recommend further evaluation with ultrasound. 3. Slightly nodular liver, suspicious for cirrhosis 4. Coronary artery disease. Moderate atherosclerotic vascular disease.
--- NOTE | 2025-07-18 12:20 | DVH ---
Technique: Real-time ultrasound imaging of the abdomen was performed with grayscale and color Doppler. Indication: gb distened, nodular liver Comparison: US LIVER on DOS: 09/16/23 Findings: Liver measures 15.4 cm. It is increased in echogenicity and coarse echotexture without focal mass. Portal vein is normal in caliber and demonstrates normal hepatopetal flow. Gallbladder demonstrates no evidence for cholelithiasis. There is no pericholecystic fluid. The wall thickness is normal. The common bile duct measures 4 mm. No intrahepatic biliary ductal dilatation. The right kidney measures 10.7 cm. There is no hydronephrosis or sonographic evidence of nephrolithiasis. Right renal upper pole cyst with septation measuring 1.5 cm The visualized portion of the pancreas is unremarkable. Impression: Cirrhotic morphology appearance liver. 1.5 cm right renal cyst with septation. Recommend follow-up CT abdomen pelvis with contrast in 6 months. No evidence for cholelithiasis.
[2025-07-18] MEDS: FLEET ENEMA(ADULT) 135 ML PR ONE ×2 (13:30)
--- NOTE | 2025-07-18 18:50 | DVHPNRES ---
Progress Note Date Seen: Jul 18, 2025 Resident Creating Document: MANDY RAMIRES RESIDENT Medical Necessity Reason Pt with a Central, PICC or Fol: No Subjective Review of Systems Jordan Lund is a 64-year old male with past medical history of hypertension, type 2 diabetes mellitus, hepatitis-C who presented to the ED with a chief complaint of abdominal pain, nausea and vomiting for the last 2 days. The patient mentioned that the pain was all over the abdomen,rated as 8/10 in intensity, no aggravating or relieving factors. This was associated with generalized body weakness. Patient also stated that he noticed his blood sugar level to be around 250s and mentioned that he had a few near syncopal events, wherein he had a fall without loss of consciousness. He stated that he was compliant with his diabetes medication. He denied any fever, chills, chest pain, shortness of breath, palpitations or lightheadedness. Past medical history: Hypertension, type 2 diabetes mellitus, hepatitis-C Past surgical history: Denies Social & Personal history: Lives alone Smoking: Pack per week Alcohol: quit drinking 12 years ago Drugs: Denies Allergies: No known allergies Patient seen and examined at bedside. Patient is alert and oriented to time, place person and responding to all questions. He complains of generalised body weakness. Eyes: No Pain, No Vision change, No Conjunctivae inflammation, No Eyelid inflammation, No Redness ENT: No Ear pain, No Ear discharge, No Nose pain, No Nose discharge, No Nose congestion, No Mouth pain, No Mouth swelling, No Throat pain, No Throat swelling Cardiovascular: No Chest Pain, No Palpitations, No Orthopnea, No Paroxysmal No Dyspnea, No Edema, No Lt Headedness Respiratory: No Cough, No Dry, No Shortness of breath, No SOB with exertion, No Wheezing, No Hemoptysis, No Pleuritic Pain, No Sputum Gastrointestinal: No Nausea, No Vomiting, No Abdominal Pain, No Diarrhea, No Constipation, No Melena, No Hematochezia Genitourinary: No Dysuria, No Frequency, No Incontinence, No Hematuria, No Retention Objective vital signs Vital Sign Date Time Temp Pulse Resp B/P (MAP) Pulse Ox O2 Delivery O2 Flow Rate FiO2 07/18/25 17:00 98.5 72 20 92/60 (71) 96 98.5 07/18/25 08:00 Room Air* 0 21 Total Intake and Output 11/3/25 11/3/25 11/4/25 15:00 23:00 07:00 Intake Total 520 ml Balance 520 ml medications Current Medications Medications Dose Ordered Sig/Edgard Route Start Time Stop Time Status Last Admin Dose Admin Nitroglycerin 0.4 mg Q5MINP PRN SL 07/17/25 15:30 Morphine Sulfate 2 mg Q30M PRN IV 07/17/25 15:30 Diagnostic Test (Pha) 1 strip ACHS 07/17/25 17:00 07/18/25 16:44 1 STRIP Insulin Human Regular HS SC 07/17/25 22:00 Insulin Human Regular AC SC 07/17/25 17:00 07/18/25 16:48 2 UNITS Dextrose 50 ml UD PRN IV 07/17/25 15:45 Enoxaparin Sodium 40 mg DAILY SC 07/18/25 10:00 07/18/25 08:40 40 MG Acetaminophen/ Hydrocodone Bitart 1 tab Q6HPRN PRN PO 07/17/25 16:00 07/18/25 13:04 1 TAB Ondansetron HCl 4 mg Q4HPRN PRN IV 07/17/25 16:00 07/17/25 21:07 4 MG Sodium Chloride 1,000 ml @ 75 mls/hr [id number] IV 07/17/25 16:45 07/17/25 16:45 75 MLS/HR Insulin Glargine 15 units QAM SC 07/19/25 07:00 Ceftriaxone Sodium 50 ml @ 100 mls/hr DAILY@09 IV 07/19/25 09:00 Metronidazole 100 ml @ 100 mls/hr Q8HR IV 07/18/25 14:00 07/18/25 13:03 100 MLS/HR Metoclopramide HCl 5 mg Q8HR IV 07/18/25 22:00 Examination General Appearance: Alert, Oriented X2, Cooperative, No acute distress HEENT: Atraumatic, PERRLA, EOMI, Mucous membrane moist/pink Respiratory: Clear to auscultation, Normal air movement Cardiovascular: Regular rate, Normal S1, Normal S2, No murmurs, no chest wall tenderness Abdominal: Normal bowel sounds, Soft, No tenderness, No hepatospenomegaly, No masses Extremities: No clubbing, No cyanosis, No edema, Normal pulses, No tenderness/swelling Skin: No rashes, No breakdown, No significant lesion Neuro: Normal speech, Strength at 5/5 X4 ext, Normal tone, Sensation intact, Cranial nerves 3-12 NL, Reflexes 2+ Psych/Mental Status: Mental status NL, Mood NL laboratory and microbiology Laboratory Tests 07/18/25 05:27 Test 07/18/25 05:27 Range/Units Serum Glucose 183 #H 74-106 mg/dL Labs and/or images reviewed: Labs reviewed by me, Image(s) reviewed by me Problem List/Assessment/Plan Problem List/Assessment/Plan # Acute metabolic/ toxic encephalopathy # Autonomic dysfunction # Recurrent near syncopal event, likely due to above ,rule out arrhythmia - EKG demonstrated and troponins were unremarkable - admit the patient in telemetry # Acute gastroenteritis # Intractable nausea,vomiting and abdominal pain, likely due to above # Possible acute gastroparesis -started ceftriaxone and flagyl -CT abdomen 1. Severely distended urinary bladder, concerning for urinary retention. No hydronephrosis. 2. Moderately distended gallbladder. No calcified gallstones. Recommend further evaluation with ultrasound. 3. Slightly nodular liver, suspicious for cirrhosis 4. Coronary artery disease. Moderate atherosclerotic vascular disease -Liver US- Cirrhotic morphology appearance liver and 1.5 cm right renal cyst with septation. Recommend follow-up CT abdomen pelvis with contrast in 6 months. -fleet enema given -reglan 5mg iv qhr started # Uncontrolled type 2 diabetes mellitus - moderate sliding scale of insulin -started on lantus 15 units qam # Chronic Hepatitis c infection # Hypertensive heart disease - hold home medication as blood pressure is on the lower side - pending echo report #Polysubstance abuse (UDS positive for amphetamines) -extensively counseled for more than 15 minutes on the need for cessation DVT prophylaxis- Lovenox 40 mg sc daily Goal of care discussed with the patient for more than 20 minutes full code Plan discussed with Dr. Jaramillo Plan discussed with: Patient My Orders My Orders Orders - MANDY RAMIRES RESIDENT Procedure Category Date Status Time LIVER US 07/18/25 Resulted 11:40 Ceftriaxone 1gm/50ml PHA 07/19/25 In Process (Rocephin) 09:00 Metronidazole PHA 07/18/25 In Process 500mg/100ml (Flagyl 14:00 Date of Service: Jul 18, 2025 Billing Provider: TONY RAI MD Common Visit Codes: [id number] INP/OBS CARE(HIGH) MANDY RAMIRES RESIDENT Jul 18, 2025 18:50
[2025-07-18] MEDS: METOCLOPRAMIDE HCL 5MG/ml INJ 2ml VIAL IV SCH (21:14)
[2025-07-19 01:00] VITALS: BP 105/68; PULSE 76; RESP 17; TEMP 98.4; O2SAT 94
[2025-07-19 05:00] VITALS: BP 138/84; PULSE 77; RESP 17; TEMP 97.8; O2SAT 95
[2025-07-19] MEDS: INSULIN LANTUS (GLARGINE) 1 /0.01ml (100units/ml) SC SCH (06:01)
[2025-07-19 06:08] LABS: Hematocrit 37.8 % (41.0-53.0); Hemoglobin 12.9 g/dL (13.5-17.5); Mean Corpuscular Hemoglobin 34.0 pg (28.0-32.0); Mean Corpuscular Volume 99.5 fL (80.0-100.0); Nucleated Red Blood Cells % 0.2 %
[2025-07-19 06:16] LABS: Anion Gap 7 (5-15); Carbon Dioxide 26 mmol/L (20-31); Chloride 105 mmol/L (98-107); Potassium 3.9 mmol/L (3.5-5.1); Sodium 138 mmol/L (136-145)
[2025-07-19 06:22] LABS: BUN/Creatinine Ratio 14.9 (10.0-20.0); Blood Urea Nitrogen 10 mg/dL (9-23)
[2025-07-19 06:24] LABS: Calcium 7.8 mg/dL (8.7-10.4); Glucose 188 mg/dL (74-106)
[2025-07-19 08:00] VITALS: PULSE 78; PULSE 82; RESP 18; O2SAT 99
[2025-07-19 08:58] VITALS: BP 113/77; PULSE 78; RESP 16; TEMP 97.8; O2SAT 100
[2025-07-19] MEDS ORDERED: DAPA1TAB4 PO (09:18)
[2025-07-19] MEDS ORDERED: TAMS0.4C39 PO (09:18)
[2025-07-19] MEDS ORDERED: METF-490 PO (09:18)
[2025-07-19] MEDS ORDERED: INSUINJ37 SC (09:18)
--- NOTE | 2025-07-19 10:25 | DVHSR ---
APPROVED REPORT EXAM: Two-dimensional and M-mode echocardiogram with Doppler and color Doppler. Blood Pressure: 104/44 mmHg INDICATION Syncope RISK FACTORS Height: 5'3", Weight: 146 DIMENSIONS LVDd 4.6 (3.8-5.7cm) LA (2D) 3.8 (1.9-4.0cm) Aortic Root 3.6 (2.0-3.7cm) LVDs 2.9 (2.5-4.0cm) LA (MM) (1.9-4.0cm) Aortic Cusp Exc 2.1 (1.5-2.0cm) EF (%) 67.0 (55-70%) Rt. Atrium 3.3 (1.9-4.0cm) Asc. Aorta 3.3 cm IVSd 0.7 (0.7-1.1cm) RV (D) (1.8-2.4cm) PWd 0.8 (0.7-1.1cm) Mitral Valve Mitral Mitral Stenosis E wave 0.87m/s MV Mean GR. mmHg A wave 0.80m/s MV Peak GR. mmHg E/A ratio 1.1 2D MVA cm2 DECEL Time 160ms PRESS 1/2 Time ms Aortic Valve Aortic Valve Aortic Stenosis V1 0.89m/s AO Mean GR. 5mmHg V2 1.45m/s AO Peak GR. 8mmHg LVOT Diameter 2.0 (1.8-2.4cm) Doppler MT 1.93cm2 Tricuspid Valve TR Velocity 2.43m/s RVSP 27mmHg Conclusion NORMAL LV EF AND IS 65% NORMAL VALVES NORMAL SIZE OF CARDIAC CHAMBERS NORMAL RV FUNCTION NO EFFUSION
[2025-07-19 10:53] VITALS: TEMP 36.6
--- NOTE | 2025-07-19 16:57 | DVHDSRES ---
Discharge Summary Date of Admission Resident Creating Document: MANDY RAMIRES RESIDENT Jul 17, 2025 at 15:27 Date of Discharge: Jul 19, 2025 Labs/Diagnostic Data: Laboratory Results Test 07/19/25 11:46 07/19/25 04:40 07/18/25 09:24 07/18/25 05:27 POC Glucose 212 mg/dl (70-106) White Blood Count 2.9 10^3/uL (4.4-10.8) Red Blood Count 3.80 10^6/uL (4.5-5.90) Hemoglobin 12.9 g/dL (13.5-17.5) Hematocrit 37.8 % (41.0-53.0) Mean Corpuscular Volume 99.5 fL (80.0-100.0) Mean Corpuscular Hemoglobin 34.0 pg (28.0-32.0) Mean Corpuscular Hemoglobin Concent 34.2 g/dL (32.0-36.0) Red Cell Distribution Width 14.1 % (11.8-14.3) Platelet Count 109 10^3/uL (140-450) Mean Platelet Volume 8.0 fL (6.9-10.8) Neutrophils (%) (Auto) 42.7 % (37.0-80.0) Lymphocytes (%) (Auto) 34.9 % (10.0-50.0) Monocytes (%) (Auto) 14.6 % (0.0-12.0) Eosinophils (%) (Auto) 7.5 % (0.0-7.0) Basophils (%) (Auto) 0.3 % (0.0-2.0) Neutrophils # (Auto) 1.3 10 ^3/uL (1.6-8.6) Lymphocytes # (Auto) 1.0 10 ^3/uL (0.4-5.4) Monocytes # (Auto) 0.4 10 ^3/uL (0-1.3) Eosinophils # (Auto) 0.2 10 ^3/uL (0-0.8) Basophils # (Auto) 0 10 ^3/uL (0-0.2) Nucleated Red Blood Cells 0.2 % Sodium Level 138 mmol/L (136-145) Potassium Level 3.9 mmol/L (3.5-5.1) Chloride Level 105 mmol/L (98-107) Carbon Dioxide Level 26 mmol/L (20-31) Anion Gap 7 (5-15) Blood Urea Nitrogen 10 mg/dL (9-23) Creatinine 0.67 mg/dL (0.700-1.30) Glomerular Filtration Rate Calc 105 mL/min (>90) BUN/Creatinine Ratio 14.9 (10.0-20.0) Serum Glucose 188 mg/dL (74-106) Calcium Level 7.8 mg/dL (8.7-10.4) Ammonia 46 umol/L (11-32) Total Bilirubin 0.7 mg/dL (0.2-1.0) Aspartate Amino Transferase (AST) 137 U/L (13-40) Alanine Aminotransferase (ALT) 195 U/L (7-40) Alkaline Phosphatase 85 U/L (46-116) Total Protein 6.9 g/dL (5.7-8.2) Albumin 3.0 g/dL (3.2-4.8) Lipase 57 U/L (12-53) Test 07/17/25 14:44 07/17/25 14:12 07/17/25 12:46 07/17/25 11:18 Urine Color Yellow (Yellow) Urine Clarity Clear (Clear) Urine pH 6.5 (5.0-9.0) Urine Specific [place] 1.026 (1.001-1.035) Urine Protein Negative (Negative) Urine Ketones Negative (Negative) Urine Blood Negative /uL (Negative) Urine Nitrite Negative (Negative) Urine Bilirubin Negative (Negative) Urine Urobilinogen Normal mg/dL (Negative) Urine Leukocyte Esterase Negative /uL (Negative) Urine RBC <1 /hpf (0 - 3) Urine Microscopic WBC 1 /HPF (0-3) Urine Squamous Epithelial Cells None seen /hpf (<5) Urine Bacteria None seen /hpf (None Seen) Urine Glucose 4+ mg/dL (Normal) Urine Opiates Screen Neg (NEGATIVE) Urine Fentanyl Screen Neg (NEGATIVE) Urine Barbiturates Screen Neg (NEGATIVE) Urine Phencyclidine Screen Neg (NEGATIVE) Urine Amphetamines Screen Pos (NEGATIVE) Urine Benzodiazepines Screen Neg (NEGATIVE) Urine Cocaine Screen Neg (NEGATIVE) Urine Cannabinoids Screen Neg (NEGATIVE) Prothrombin Time 11.7 sec (9.3-11.8) Prothrombin Time INR 1.12 (0.9-1.15) Activated Partial Thromboplast Time 27.6 SEC (24.5-34.5) Troponin I High Sensitivity < 3 ng/L (</=54) Direct Bilirubin 0.3 mg/dL (<0.3) Thyroid Stimulating Hormone (TSH) 2.94 uIU/mL (0.55-4.78) Hemoglobin A1c 12.9 % A1C (<5.7) Other Laboratory Tests 07/19/25 04:40 Brief Hx & Hospital Course: Jordan Lund is a 64-year old male with past medical history of hypertension, type 2 diabetes mellitus, hepatitis-C who presented to the ED with a chief complaint of abdominal pain, nausea and vomiting for the last 2 days. The patient mentioned that the pain was all over the abdomen,rated as 8/10 in intensity, no aggravating or relieving factors. This was associated with generalized body weakness. Patient also stated that he noticed his blood sugar level to be around 250s and mentioned that he had a few near syncopal events, wherein he had a fall without loss of consciousness. He stated that he was compliant with his diabetes medication. He denied any fever, chills, chest pain, shortness of breath, palpitations or lightheadedness. Head CT showed no acute intracranial abnormalities. Abdomen CT showed severely distended urinary bladder, concerning for urinary retention, no hydronephrosis with Moderately distended gallbladder, nodular liver and Coronary artery disease with Moderate atherosclerotic vascular disease. Patient also complained of constipation, he was given 1 Fleet enema post which he had 2 bowel movements. The patient stated that his abdominal pain, nausea and vomiting had resolved and he did not have any dizziness. The patient was discharged home in a stable condition. All medications and recommendations were thoroughly explained to the patient and he demonstrated understanding of the same. Patient was asked to follow up in DC clinic and with PCP in 1-2 weeks. Past medical history: Hypertension, type 2 diabetes mellitus, hepatitis-C Past surgical history: Denies Social & Personal history: Lives alone Smoking: Pack per week Alcohol: quit drinking 12 years ago Drugs: Denies Allergies: No known allergies Patient seen and examined at bedside. Patient is alert and oriented to time, place person and responding to all questions. Eyes: No Pain, No Vision change, No Conjunctivae inflammation, No Eyelid inflammation, No Redness ENT: No Ear pain, No Ear discharge, No Nose pain, No Nose discharge, No Nose congestion, No Mouth pain, No Mouth swelling, No Throat pain, No Throat swelling Cardiovascular: No Chest Pain, No Palpitations, No Orthopnea, No Paroxysmal No Dyspnea, No Edema, No Lt Headedness Respiratory: No Cough, No Dry, No Shortness of breath, No SOB with exertion, No Wheezing, No Hemoptysis, No Pleuritic Pain, No Sputum Gastrointestinal: No Nausea, No Vomiting, No Abdominal Pain, No Diarrhea, No Constipation, No Melena, No Hematochezia Genitourinary: No Dysuria, No Frequency, No Incontinence, No Hematuria, No Retention Operations or Procedures 1.PROCEDURE(s): CXRP - CHEST PORTABLE REASON: weakness ORDER NUMBER(s): [id number], ACCESSION NUMBER(s): [id number] EXAM: XY CHEST PORTABLE Indication: weakness Technique: Single frontal view of the chest was obtained Comparison: XY CHEST PORTABLE on DOS: 09/16/23 FINDINGS: Lines and Tubes: None Lungs: No focal consolidation. Low lung volumes. Pleura: No effusion. No pneumothorax. Cardiomediastinal contours: Unremarkable Bones: No acute osseous abnormality. IMPRESSION: No acute cardiopulmonary disease. 2.PROCEDURE(s): CXRP - CHEST PORTABLE REASON: sob ORDER NUMBER(s): [id number], ACCESSION NUMBER(s): [id number] CHEST RADIOGRAPH Indication: sob Technique: Single frontal view of the chest was obtained Comparison: XY CHEST PORTABLE on DOS: 07/17/25, XY CHEST PORTABLE on DOS: 09/16/23 FINDINGS: Lines and Tubes: None Lungs: No focal consolidation. Probable gas distended bowel below the left diaphragm. If however pneumoperitoneum is of clinical concern recommend CT abdomen pelvis. Pleura: No effusion. No pneumothorax. Cardiomediastinal contours: Unremarkable Bones: No acute osseous abnormality. IMPRESSION: 1. No acute cardiopulmonary disease. 2. Probable gas distended bowel below the left diaphragm. If however pneumoperitoneum is of clinical concern recommend CT abdomen and pelvis 3.PROCEDURE(s): HWOCT - HEAD WITHOUT CONTRAST REASON: s/p mechanical fall ORDER NUMBER(s): [id number], ACCESSION NUMBER(s): [id number] CLINICAL HISTORY: s/p mechanical fall TECHNIQUE: Helical imaging carried out from skull base to vertex without intravenous contrast. This exam was performed according to our departmental dose optimization program. Up-to-date CT equipment and radiation dose reduction techniques are utilized as appropriate. CTDIVol: 53.0 mGy DLP: 863.9 mGy-cm WID: COMPARISON: CT BRAIN on DOS: 04/04/24 FINDINGS: Mild cerebral volume loss with concordant prominence of the subarachnoid spaces and ventricles note is made of cavum septum pellucidum. Mild patchy low attenuation in the cerebral white matter consistent with nonspecific white matter disease. There is no midline shift or mass effect. The soto white matter interfaces are maintained. The basal cisterns are patent. There is no evidence of acute intracranial hemorrhage or extra-axial fluid collection. The mastoid air cells and visualized paranasal sinuses are well-aerated. Mildly displaced fracture of the left zygomatic process on series 3, image 1 of indeterminate chronicity IMPRESSION: 1. No acute intracranial abnormality. 2. Mild Cerebral volume loss and mild chronic microvascular ischemic change. 3. Mildly displaced fracture deformity of the left zygomatic process partially imaged of indeterminate chronicity. 4.PROCEDURE(s): ABPL - CT AB PEL WO CON-NO ORAL OR IV REASON: abdominal pain ORDER NUMBER(s): [id number], ACCESSION NUMBER(s): [id number] EXAM DESCRIPTION: CT CT AB PEL WO CON-NO ORAL OR IV CLINICAL HISTORY: abdominal pain COMPARISON: CT ABD/PEL on DOS: 04/04/24 TECHNIQUE: CT abdomen and pelvis without IV contrast was performed. Coronal and sagittal MPR images were generated.CTDI/ DLP = 7.48 / 425.18 Dose reduction technique with one or more of the following methods was performed: Automated exposure control, adjustment of the mA and/or kV according to patient size, use of iterative reconstruction technique FINDINGS: Lower chest: Clear lung bases. Multivessel coronary artery disease. Liver: Homogenous in attenuation. The liver is slightly nodular. Biliary: Moderately distended gallbladder. No calcified gallstones. No biliary ductal dilatation. Pancreas: No fat stranding or focal lesion. Spleen: Normal in size.. Adrenal glands: No nodularity. Kidneys: No nephrolithiasis. No hydroureteronephrosis. Water attenuation lesion and subcentimeter hypoattenuating lesion which is too small to characterize on CT.. Bladder: Severely distended urinary bladder. Reproductive organs: Normal. Bowel: No bowel wall thickening or dilatation. Normal appendix.. Moderate colonic stool burden. Peritoneum: No free fluid. No free air. Vessels: Normal caliber abdominal aorta. Moderate atherosclerotic calcifications.. Lymph nodes: No suspicious lymph nodes. Soft tissues: Unremarkable. . Osseous structures: No acute fracture or subluxation. No suspicious osseous lesions. Degenerative changes of the visualized thoracolumbar spine. IMPRESSION: 1. Severely distended urinary bladder, concerning for urinary retention. No hydronephrosis. 2. Moderately distended gallbladder. No calcified gallstones. Recommend further evaluation with ultrasound. 3. Slightly nodular liver, suspicious for cirrhosis 4. Coronary artery disease. Moderate atherosclerotic vascular disease. 5.PROCEDURE(s): LIVUS - LIVER REASON: gb distened, nodular liver ORDER NUMBER(s): [id number], ACCESSION NUMBER(s): [id number] Technique: Real-time ultrasound imaging of the abdomen was performed with grayscale and color Doppler. Indication: gb distened, nodular liver Comparison: US LIVER on DOS: 09/16/23 Findings: Liver measures 15.4 cm. It is increased in echogenicity and coarse echotexture without focal mass. Portal vein is normal in caliber and demonstrates normal hepatopetal flow. Gallbladder demonstrates no evidence for cholelithiasis. There is no pericholecystic fluid. The wall thickness is normal. The common bile duct measures 4 mm. No intrahepatic biliary ductal dilatation. The right kidney measures 10.7 cm. There is no hydronephrosis or sonographic evidence of nephrolithiasis. Right renal upper pole cyst with septation measuring 1.5 cm The visualized portion of the pancreas is unremarkable. Impression: Cirrhotic morphology appearance liver. 1.5 cm right renal cyst with septation. Recommend follow-up CT abdomen pelvis with contrast in 6 months. Condition at Discharge: Fair Final Diagnosis/Problems List Acute metabolic encephalopathy Autonomic dysfunction Recurrent near syncopal event, likely due to above ,ruled out arrhythmia Acute gastroenteritis Uncontrolled type 2 diabetes mellitus with hyperglycemia Hypertensive heart disease Chronic Hepatitis c infection Possible acute gastroparesis Polysubstance abuse (UDS positive for amphetamines) Discharge Disposition: Home Discharge Instruct/Medications Diet: Consistent carbohydrate Activity: No Restrictions, As Tolerated Follow Up/Referral: Follow up with DC clinic in 1 week. Follow up in dc clinic in 1 week Medications: As per EMR Scheduled Atorvastatin Calcium (Atorvastatin Calcium), 10 MG PO QPM, (Reported) Dapagliflozin Propanediol (Farxiga), 10 MG PO DAILY Insulin Glargine (Lantus Solostar), 15 UNIT SC QPM Lisinopril (Lisinopril), 5 MG PO DAILY, (Reported) Metformin Hydrochloride (Metformin Hcl), 1,000 MG PO BID, (Reported) Metformin Hydrochloride (Metformin Hcl Er), 1 TAB PO BID Nicotine (Nicoderm 21MG/24HR), 1 PATCH TOP DAILY, (Reported) Tamsulosin Hcl (Tamsulosin Hcl), 0.4 MG PO QPM, (Reported) Tamsulosin Hcl (Tamsulosin Hcl), 1 CAP PO DAILY Discontinued Medications Cephalexin Monohydrate (Cephalexin), 500 MG PO BID, (Reported) Dapagliflozin Propanediol (Farxiga), 5 MG PO DAILY, (Reported) Glipizide (Glipizide), 5 MG PO BID, (Reported) Discharge Statement: "Patient was advised to return to the ER or call 911 if any headaches, dizziness, shortness of breath, chest pain, abdominal pain, bleeding, fevers, or worsening of medical condition. Patient was counseled about treatment plan, medications, possible side effects, patientverbalized understanding. All questions were answered to the best of my ability. This discharge took greater then 30 minutes in planning, reviewing documentation, counseling the patient, and discussing with other team members." ASSESSMENT ASSESSMENT Assessment Acute metabolic encephalopathy Date of Service: Jul 19, 2025 Billing Provider: AVELINA RAMOS MD Common Visit Codes: 33174-LDS/OBS DISCH DAY >30min MANDY RAMIRES RESIDENT Jul 19, 2025 16:57
== END 2025-07-19 12:50 | disposition home or self-care (01) | DRG 248 ==
LOC: ER 09:50 → OVERFLOW 15:27 → WEST WING 15:29 → TELE-WESTW 17:02 → WEST WING 07-19 10:17
PROVIDERS: ADMIT Internal Medicine; ATTEND Internal Medicine
DX: A04.9 Bacterial intestinal infection, unspecified (principal); G93.41 Metabolic encephalopathy; Z59.00 Homelessness unspecified; G90.9 Disorder of the autonomic nervous system, unspecified; E11.65 Type 2 diabetes mellitus with hyperglycemia; F15.10 Other stimulant abuse, uncomplicated; I11.9 Hypertensive heart disease without heart failure; K31.84 Gastroparesis; F17.210 Nicotine dependence, cigarettes, uncomplicated; Z79.4 Long term (current) use of insulin; Z83.3 Family history of diabetes mellitus
CPT/HCPCS: 36415; 70450; 71045; 74176; 76705; 80048; 80053; 80076; 80307; 81001; 82140; 82962; 83036; 83690; 84443; 84484; 85025; 85610; 85730; 93306; G0378; J1815; J2405; J3490

== ENCOUNTER 2025-08-19 18:30 | Emergency (ER) | payer MEDICAID ==
[~2025-08-19] VITALS: Ht 172.7 cm; Wt 68.0 kg
[~2025-08-19 18:30] MED LIST changes: +ATOR10TA52 PO; -CIPR-173 PO; +DAPA1TAB4 PO; +INSUINJ37 SC; +LISI-275 PO; +METF-370 PO; -METF-372 PO; +METF-490 PO; +NIC21P TOP; +TAMS0.4C39 PO
--- NOTE | 2025-08-19 19:10 | ED.PDOC ---
History of Present Illness HPI Comments 64-year-old male who came to ER for headaches. Per EMS, the patient was picked up sleeping in the parking lot of a nearby grocery store. Patient has been complaining of right-sided headaches for the past 4 hours, pressure associated with dizziness, pt reports he has a history of the same headaches usually caused by stress. he states that his landlord has been "unkind" to him.. Denies recent trauma. Blood sugar on scene was 111, Chief Complaint: Headaches Time Seen by MD: 19:10 Primary Care Provider: NONE Reviewed Notes: Nurses Notes Allergies: Coded Allergies: NO KNOWN ALLERGIES (Unverified , 01/05/12) Home Meds Active Scripts Tamsulosin Hcl (Tamsulosin Hcl) 0.4 Mg Cap, 1 CAP PO DAILY for 30 Days, #30 CAP 3 Refills Prov:DELISASUKH MCLAUGHLINGER RESIDENT 07/19/25 Insulin Glargine (Lantus Solostar) 100 Unit/Ml Inj, 15 UNIT SC QPM for 30 Days, #7 INJ 2 Refills Prov:DELISAROLANDGER RESIDENT 07/19/25 Dapagliflozin Propanediol (Farxiga) 10 Mg Tab, 10 MG PO DAILY for 30 Days, #30 TAB 3 Refills Prov:DELISAROLANDGER RESIDENT 07/19/25 Metformin Hydrochloride (METFORMIN HCL ER) 1,000 Mg Tab, 1 TAB PO BID for 30 Days, #60 TAB 3 Refills Prov:SUKH HOGUEHIRA RESIDENT 07/19/25 Reported Medications Atorvastatin Calcium (ATORVASTATIN CALCIUM) 10 Mg Tab, 10 MG PO QPM, TAB 07/17/25 Nicotine (Nicoderm 21MG/24HR) 1 Patch Ph, 1 PATCH TOP DAILY, #28 PATCH 1 Refill 07/17/25 Metformin Hydrochloride (Metformin Hcl) 500 Mg Tab, 1000 MG PO BID for 30 Days, MG 07/17/25 Tamsulosin Hcl (Tamsulosin Hcl) 0.4 Mg Cap, 0.4 MG PO QPM for 30 Days, MG 07/17/25 Lisinopril (Lisinopril) 5 Mg Tab, 5 MG PO DAILY for 30 Days, MG 07/17/25 Information Source: Patient, Emergency Med Personnel Mode of Arrival: EMS Past Medical History PAST MEDICAL HISTORY: DM, HTN Past Medical History (Other): Hepatitis-C, migraine headaches Surgical History: Denies all surgeries Family History Family History: No family hx of DM, No family hx of Heart yoly, No family hx of Stroke Social History Smoker: Cigarettes Alcohol: Denies ETOH Use Drugs: Denies Drug Use Lives In: Home Constitutional: denies: chills, diaphoresis, fatigue, fever, malaise, sweats, weakness, others EENTM: reports: blurred vision, photophobia; denies: double vision, ear bleeding, ear discharge, ear drainage, ear pain, ear ringing, eye pain, eye redness, hearing loss, mouth pain, mouth swelling, nasal discharge, nose bleeding, nose congestion, nose pain, tearing, throat pain, throat swelling, voice changes, others Respiratory: denies: cough, hemoptysis, orthopnea, SOB at rest, shortness of breath, SOB with excertion, stridor, wheezing, others Cardiovascular: denies: chest pain, dizzy spells, diaphoresis, Dyspnea on exertion, edema, irregular heart beat, left arm pain, lightheadedness, palpitations, PND, syncope, others Gastrointestinal: denies: abdomen distended, abdominal pain, blood streaked bowels, constipated, diarrhea, dysphagia, difficulty swallowing, hematemesis, melena, nausea, poor appetite, poor fluid intake, rectal bleeding, rectal pain, vomiting, others Genitourinary: denies: burning, dysuria, flank pain, frequency, hematuria, incontinence, penile discharge, penile sore, pain, testicle pain, testicle swelling, urgency, others Neurological: reports: dizziness, headache; denies: fainting, left sided numbness, left sided weakness, numbness, paresthesia, pre-existing deficit, r ight sided numbness, right sided weakness, seizure, speech problems, tingling, tremors, weakness, others Musculoskeletal: denies: back pain, gout, joint pain, joint swelling, muscle pain, muscle stiffness, neck pain, others Integumetry: denies: bruises, change in color, change in hair/nails, dryness, laceration, lesions, lumps, rash, wounds, others Allergic/Immunocompromised: denies: Difficulty Healing, Frequent Infections, Hives, Itching, others Hematologic/Lymphatic: denies: anemia, blood clots, easy bleeding, easy bruising, swollen glands, others Endocrine: denies: excessive hunger, excessive sweating, excessive thirst, excessive urination, flushing, intolerance to cold, intolerance to heat, unexplained weight gain, unexplained weight loss, others Psychiatric: denies: anxiety, bipolar disorder, depression, hopeless, panic disorder, schizophrenia, sleepless, suicidal, others Physical Exam General Appearance: No Apparent Distress, Normal HEENT: Normal ENT Inspection, Pharynx Normal, TMs Normal Neck: Full Range of Motion, Non-Tender, Normal, Normal Inspection Respiratory: Chest Non-Tender, Lungs Clear, No Accessory Muscle Use, No Respiratory Distress, Normal Breath Sounds Cardiovascular: No Edema, No JVD, No Murmur, No Gallop, Normal Peripheral Pulses, Regular Rate/Rhythm Breast Exam: Deferred Gastrointestinal: No Organomegaly, Non Tender, No Pulsatile Mass, Normal Bowel Sounds, Soft Genitalia: Deferred Pelvic: Deferred Rectal: Deferred Extremities: No calf tenderness, Normal capillary refill, Normal inspection, Normal range of motion, Non-tender, No pedal edema, Other (Left thumb stump) Musculoskeletal : Apperance: Normal Neurologic: Alert, insurance adjustor II-XII nml as Tested, No Motor Deficits, Normal Affect, Normal Mood, No Sensory Deficits Cerebellar Function: Normal Reflexes: Normal Skin: Dry, Normal Color, Warm Lymphatic: No Adenopathy Was a procedure done? Was a procedure done?: No Differential Dx Considerations may include: Anemia, electrolyte imbalance, dehydration, migraine headaches X-Ray, Labs, Meds, VS Vital Signs Date Time Temp Pulse Resp B/P (MAP) Pulse Ox O2 Delivery O2 Flow Rate FiO2 08/19/25 19:50 97.6 98 18 118/72 99 97.6 Lab Test 08/19/25 19:48 Range/Units White Blood Count 4.5 4.4-10.8 10^3/uL Red Blood Count 3.69 L 4.5-5.90 10^6/uL Hemoglobin 12.6 L 13.5-17.5 g/dL Hematocrit 36.7 L 41.0-53.0 % Mean Corpuscular Volume 99.6 80.0-100.0 fL Mean Corpuscular Hemoglobin 34.2 H 28.0-32.0 pg Mean Corpuscular Hemoglobin Concent 34.3 32.0-36.0 g/dL Red Cell Distribution Width 15.0 H 11.8-14.3 % Platelet Count 137 L 140-450 10^3/uL Mean Platelet Volume 7.2 6.9-10.8 fL Neutrophils (%) (Auto) 55.5 37.0-80.0 % Lymphocytes (%) (Auto) 31.4 10.0-50.0 % Monocytes (%) (Auto) 10.8 0.0-12.0 % Eosinophils (%) (Auto) 1.5 0.0-7.0 % Basophils (%) (Auto) 0.8 0.0-2.0 % Neutrophils # (Auto) 2.5 1.6-8.6 10 ^3/uL Lymphocytes # (Auto) 1.4 0.4-5.4 10 ^3/uL Monocytes # (Auto) 0.5 0-1.3 10 ^3/uL Eosinophils # (Auto) 0.1 0-0.8 10 ^3/uL Basophils # (Auto) 0 0-0.2 10 ^3/uL Nucleated Red Blood Cells 0.2 % Sodium Level 139 136-145 mmol/L Potassium Level 3.9 3.5-5.1 mmol/L Chloride Level 104 98-107 mmol/L Carbon Dioxide Level 27 20-31 mmol/L Anion Gap 8 5-15 Blood Urea Nitrogen 15 9-23 mg/dL Creatinine 0.79 0.700-1.30 mg/dL Glomerular Filtration Rate Calc 100 >90 mL/min BUN/Creatinine Ratio 19.0 10.0-20.0 Serum Glucose 163 H 74-106 mg/dL Calcium Level 9.6 8.7-10.4 mg/dL EXAM: CT HEAD WITHOUT CONTRAST INDICATION: headache TECHNIQUE: CT of the head without intravenous contrast. Radiation Dose : 1. Head: CT Dose: CTDI volume is 53.17 mGy. Dose-length product is 901.78 mGy*cm The dose indicators for CT are the volume Computed Tomography (CT) Dose Index (CTDIvol) and the Dose Length Product (DLP), and are measured in units of mGy and mGy-cm, respectively. These indicators are not patient dose, but values generated from the CT scanner acquisition factors. The report includes radiation exposure data for exposures received during this examination. COMPARISON: CT HEAD WITHOUT CONTRAST on DOS: 07/17/25, CT BRAIN on DOS: 04/04/24 FINDINGS: The cerebral parenchyma appears to be normal configuration and attenuation. The ventricles, cisterns, and sulci appear age-appropriate. There is no evidence for acute territorial infarct, hemorrhage, or mass effect. Incidental note of a cavum septum pellucidum et vergae. The orbits are normal. The visualized paranasal sinuses and mastoid air cells are clear. The soft tissues and osseous structures appear within normal limits. IMPRESSION: 1. No acute territorial infarct, intracranial hemorrhage, or mass effect. If clinical symptoms persist, MRI may be beneficial in further evaluation. Radiation optimization: All CT scans at this facility use at least one of these dose optimization techniques: automated exposure control mA and/or kV adjustment per patient size (includes targeted exams where dose is matched to clinical indication) or iterative reconstruction. Time of 1ST Reevaluation: 19:05 Reevaluation 1ST: Unchanged Patient Education/Counseling: Diagnosis, Treatment Family Education/Counseling: No Family Present SEPSIS Sepsis Screen Physician Orders Head Without Contrast (08/19/25 19:04) Accucheck (08/19/25 19:04) Vital Signs Date Time Temp Pulse Resp B/P (MAP) Pulse Ox O2 Delivery O2 Flow Rate FiO2 08/19/25 19:50 97.6 98 18 118/72 99 97.6 Laboratory Tests Test 08/19/25 19:48 White Blood Count 4.5 10^3/uL (4.4-10.8) Departure 1 Departure Time of Disposition: 22:55 Impression: Primary Impression: Stress headache Disposition: 01 HOME / SELF CARE / HOMELESS Condition: Good e-Prescriptions Ibuprofen Micronized (MOTRIN TABLET) 600 Mg Tb 600 MG PO TID PRN, #40 TAB *Black box warning-NSAIDS can increase risk of IN & hypertension, GI irritation, ulceration, bleed, perferation. Do not use post cardiac surgery. Use short duration/lowest effective dose. Prov: JASON NIETO MD 08/19/25 Discharged With: Self Critical Care Note Critical Care Time?: No Stability Stability form required: No Heart Score Heart Score: Heart Score Response (Comments) Value History N/A 0 EKG N/A 0 Age N/A 0 Risk Factors N/A 0 Troponin N/A 0 Total 0 I personally scribed for JASON NIETO MD ([facility]) on 08/19/25 at 19:10. Electronically submitted by Mckay Nava ([email or web address]). I personally scribed for JASON NIETO MD ([facility]) on 08/19/25 at 20:34. Electronically submitted by Mckay Nava ([email or web address]). JASON NIETO MD Aug 19, 2025 19:10
[2025-08-19] MEDS ORDERED: ONDANSETRON ODT 4 MG TAB PO ONE (19:15)
[2025-08-19] MEDS ORDERED: HYDROcodone-ACET 5/325MG TAB PO ONE (19:15)
--- NOTE | 2025-08-19 19:48 | DVH ---
EXAM: CT HEAD WITHOUT CONTRAST INDICATION: headache TECHNIQUE: CT of the head without intravenous contrast. Radiation Dose : 1. Head: CT Dose: CTDI volume is 53.17 mGy. Dose-length product is 901.78 mGy*cm The dose indicators for CT are the volume Computed Tomography (CT) Dose Index (CTDIvol) and the Dose Length Product (DLP), and are measured in units of mGy and mGy-cm, respectively. These indicators are not patient dose, but values generated from the CT scanner acquisition factors. The report includes radiation exposure data for exposures received during this examination. COMPARISON: CT HEAD WITHOUT CONTRAST on DOS: 07/17/25, CT BRAIN on DOS: 04/04/24 FINDINGS: The cerebral parenchyma appears to be normal configuration and attenuation. The ventricles, cisterns, and sulci appear age-appropriate. There is no evidence for acute territorial infarct, hemorrhage, or mass effect. Incidental note of a cavum septum pellucidum et vergae. The orbits are normal. The visualized paranasal sinuses and mastoid air cells are clear. The soft tissues and osseous structures appear within normal limits. IMPRESSION: 1. No acute territorial infarct, intracranial hemorrhage, or mass effect. If clinical symptoms persist, MRI may be beneficial in further evaluation. Radiation optimization: All CT scans at this facility use at least one of these dose optimization techniques: automated exposure control mA and/or kV adjustment per patient size (includes targeted exams where dose is matched to clinical indication) or iterative reconstruction.
[2025-08-19 19:50] VITALS: BP 118/72; PULSE 98; RESP 18; TEMP 97.6; O2SAT 99
[2025-08-19 20:04] LABS: Chloride 104 mmol/L (98-107); Hematocrit 36.7 % (41.0-53.0); Hemoglobin 12.6 g/dL (13.5-17.5); Mean Corpuscular Hemoglobin 34.2 pg (28.0-32.0); Mean Corpuscular Volume 99.6 fL (80.0-100.0); Nucleated Red Blood Cells % 0.2 %; Potassium 3.9 mmol/L (3.5-5.1); Sodium 139 mmol/L (136-145)
[2025-08-19 20:05] LABS: Anion Gap 8 (5-15); Carbon Dioxide 27 mmol/L (20-31)
[2025-08-19 20:06] LABS: Calcium 9.6 mg/dL (8.7-10.4)
[2025-08-19 20:11] LABS: BUN/Creatinine Ratio 19.0 (10.0-20.0); Blood Urea Nitrogen 15 mg/dL (9-23)
[2025-08-19 20:12] LABS: Glucose 163 mg/dL (74-106)
[2025-08-19] MEDS ORDERED: HYDR-4902 PO (22:56)
[2025-08-19] MEDS ORDERED: IBU600T PO (23:00)
== END 2025-08-20 01:06 | disposition home or self-care (01) ==
LOC: ER 18:30 → EDBD 18:30 → ER 08-20 01:06
DX: G44.209 Tension-type headache, unspecified, not intractable (principal); E11.9 Type 2 diabetes mellitus without complications; F17.210 Nicotine dependence, cigarettes, uncomplicated; I10 Essential (primary) hypertension; Z79.899 Other long term (current) drug therapy
CPT/HCPCS: 36415; 70450; 80048; 85025